=== PATIENT | male | born 1960 | race Caucasian/White ===

== ENCOUNTER 2017-02-15 19:17 | Emergency (ER) | payer MEDICAID ==
--- NOTE | 2017-02-15 19:51 | EDM.PDOC ---
ED HPI GENERAL MEDICAL PROBLEM - General Chief Complaint: Chest Pain Stated Complaint: [facility] Time Seen by Provider: 02/15/17 19:30 Source of Information: Reports: Patient, EMS History Limitations: Reports: Intoxication - History of Present Illness INITIAL COMMENTS - FREE TEXT/NARRATIVE: 56-year-old male brought in by ambulance with left upper chest discomfort for the past 20-30 minutes, no shortness of breath, no nausea or vomiting. He thought it was radiating to his teeth which concerned him so he came in. He's been drinking very heavily today, he is under a lot of stress at home. An EKG done by EMS in route was normal, and EKG repeated here is also normal. He currently has no symptoms. Onset: Today (Chest discomfort started roughly 1 hour before arrival to the emergency room) Severity: Moderate Associated Symptoms: Reports: No Other Symptoms - Related Data Allergies Allergy/AdvReac Type Severity Reaction Status Date / Time No Known Allergies Allergy Verified 02/15/17 19:21 Home Meds: Home Meds Aspirin [Halfprin] 81 mg PO DAILY 02/15/17 [History] Hydrochlorothiazide/Lisinopril [Lisinopril-HCTZ 20-25 MG] 1 tab PO DAILY [History] atorvaSTATin Calcium [Atorvastatin Calcium] 1 tab PO DAILY 02/15/17 [History] Past Medical History Cardiovascular History: Reports: Angina, Blood Clots/VTE/DVT, High Cholesterol, Hypertension, MA Musculoskeletal History: Reports: Fracture Neurological History: Reports: Concussion Psychiatric History: Reports: Addiction, Depression Dermatologic History: Reports: Other (See Below) Other Dermatologic History: rash on legs - Infectious Disease History Infectious Disease History: Reports: Chicken Pox, Hepatitis C, Mononucleosis, Shingles - Past Surgical History HEENT Surgical History: Reports: Cataract Surgery, Oral Surgery, Other (See Below) Other HEENT Surgeries/Procedures: partials GI Surgical History: Reports: Hernia Repair/Other Social & Family History - Tobacco Use Smoking Status *Q: Current Every Day Smoker Years of Tobacco use: 43 Packs/Tins Daily: 0.5 Used Tobacco, but Quit: No Month Tobacco Last Used: July Second Hand Smoke Exposure: Yes - Caffeine Use Caffeine Use: Reports: None - Alcohol Use Days Per Week of Alcohol Use: 4 Number of Drinks Per Day: 5 Total Drinks Per Week: 20 - Recreational Drug Use Recreational Drug Use: No Drug Use in Last 12 Months: No Recreational Drug Type: Reports: Cocaine, Ecstasy, LSD (Acid), Marijuana/Hashish , Mescaline, PCP (Sam Dust), Psilocybin (Mushrooms) Recreational Drug Use Frequency: Not Used In Over 1 Year Recreational Drug Last Use: 20 years ago ED ROS GENERAL - Review of Systems Review Of Systems: See Below Constitutional: Reports: Malaise. Denies: Fever, Chills Respiratory: Denies: Shortness of Breath, Cough Cardiovascular: Reports: Chest Pain GI/Abdominal: Denies: Abdominal Pain, Nausea, Vomiting Musculoskeletal: Reports: No Symptoms Skin: Reports: No Symptoms Neurological: Reports: Headache Psychiatric: Reports: Anxiety, Other (Patient is under a lot of stress, recently lost his to illness) ED EXAM, GENERAL - Physical Exam Exam: See Below Exam Limited By: Intoxication General Appearance: Alert, No Apparent Distress Eye Exam: Bilateral Eye: EOMI (No jaundice) Neck: Normal Inspection Respiratory/Chest: No Respiratory Distress, Lungs Clear Cardiovascular: Regular Rate, Rhythm GI/Abdominal: Soft, Non-Tender Extremities: Normal Inspection. No: Pedal Edema Neurological: Alert, Oriented Psychiatric: Normal Mood Skin Exam: Warm, Dry Course - Vital Signs Last Recorded V/S: Last Vital Signs Temp 98.2 F 02/15/17 19:32 Pulse 89 02/15/17 21:24 Resp 20 02/15/17 21:24 BP 118/71 02/15/17 21:24 Pulse Ox 96 02/15/17 21:24 - Orders/Labs/Meds Orders: Active Orders 24 hr Category Date Time Status EKG Documentation Completion [RC] ASDIRECTED Care 02/15/17 19:49 Active EKG 12 Lead [EK] Routine Ther 02/15/17 19:49 Ordered Labs: Laboratory Tests 02/15/17 02/15/17 02/15/17 Range/Units 19:49 19:49 19:49 WBC 6.6 (4.5-11.0) K/uL RBC 4.56 (4.30-5.90) M/uL Hgb 15.0 (12.0-15.0) g/dL Hct 43.3 (40.0-54.0) % MCV 95 (80-98) fL MCH 33 H (27-31) pg MCHC 35 (32-36) % Plt Count 70 L (150-400) K/uL Neut % (Auto) 43 (36-66) % Lymph % (Auto) 37 (24-44) % Canyon % (Auto) 10 H (2-6) % Eos % (Auto) 8 H (2-4) % Baso % (Auto) 2 H (0-1) % Sodium 142 (140-148) mmol/L Potassium 4.3 (3.6-5.2) mmol/L Chloride 107 (100-108) mmol/L Carbon Dioxide 31 (21-32) mmol/L Anion Gap 3.7 L (5.0-14.0) mmol/L BUN 8 (7-18) mg/dL Creatinine 0.8 D (0.8-1.3) mg/dL Est Cr Clr Drug Dosing 121.30 mL/min Estimated GFR (MDRD) > 60 (>60) Glucose 121 H (74-106) mg/dL Calcium 8.6 (8.5-10.1) mg/dL Troponin I < 0.017 (0.000-0.056) ng/mL Ethyl Alcohol 360 mg/dL 02/15/17 Range/Units 22:00 WBC (4.5-11.0) K/uL RBC (4.30-5.90) M/uL Hgb (12.0-15.0) g/dL Hct (40.0-54.0) % MCV (80-98) fL MCH (27-31) pg MCHC (32-36) % Plt Count (150-400) K/uL Neut % (Auto) (36-66) % Lymph % (Auto) (24-44) % Canyon % (Auto) (2-6) % Eos % (Auto) (2-4) % Baso % (Auto) (0-1) % Sodium (140-148) mmol/L Potassium (3.6-5.2) mmol/L Chloride (100-108) mmol/L Carbon Dioxide (21-32) mmol/L Anion Gap (5.0-14.0) mmol/L BUN (7-18) mg/dL Creatinine (0.8-1.3) mg/dL Est Cr Clr Drug Dosing mL/min Estimated GFR (MDRD) (>60) Glucose (74-106) mg/dL Calcium (8.5-10.1) mg/dL Troponin I < 0.017 (0.000-0.056) ng/mL Ethyl Alcohol mg/dL - Re-Assessments/Exams Free Text/Narrative Re-Assessment/Exam: 02/15/17 22:27 CBC, CMP, troponin EtOH were obtained. No symptoms needed treatment as other than intoxication he had no symptoms. EKG was normal. Labs returned reassuring other than an EtOH of 0.36. Patient did not want hospitalization to rule out MA so he was monitored for the next 3 hours, the troponin repeated and again it was 0. Departure - Departure Time of Disposition: 22:42 Disposition: Home, Self-Care 01 Condition: Fair Clinical Impression: Alcohol intoxication, Atypical chest pain - Discharge Information Instructions: Alcohol Intoxication, [id number] Referrals: PCP,None [Primary Care Provider] - Forms: ED Department Discharge Care Plan Goals: Avoid drinking so heavily in the future. Increase activity as tolerated and discuss possibly obtaining a stress test at your convenience with your primary doctor. - My Orders Last 24 Hours: My Active Orders 02/15/17 19:49 EKG Documentation Completion [RC] ASDIRECTED EKG 12 Lead [EK] Routine - Assessment/Plan Last 24 Hours: My Active Orders 02/15/17 19:49 EKG Documentation Completion [RC] ASDIRECTED EKG 12 Lead [EK] Routine
[2017-02-15 21:25] VITALS: BP 118/71
== END 2017-02-15 22:42 | disposition home or self-care (01) ==
LOC: JP.ED 19:17
DX: R07.89 Other chest pain (principal); F10.129 Alcohol abuse with intoxication, unspecified; F17.210 Nicotine dependence, cigarettes, uncomplicated; I10 Essential (primary) hypertension; I25.2 Old myocardial infarction; Z79.82 Long term (current) use of aspirin; Z79.899 Other long term (current) drug therapy
CPT/HCPCS: 36415; 80048; 84484; 85025; 93005; 99285; G0480